=== PATIENT | male | born 1965 | race African-American/Black ===

== ENCOUNTER 2017-10-31 11:10 | Emergency (ER) | payer OTHER ==
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
== END 2017-10-31 12:45 | disposition home or self-care (01) ==
LOC: ERS 11:10
DX: M54.5 Low back pain (principal); V89.2XXA Person injured in unspecified motor-vehicle accident, traffic, initial encounter
CPT/HCPCS: 72128; 72131

== ENCOUNTER 2018-09-19 17:05 | Emergency (ER) | payer OTHER ==
[2018-09-19] MEDS ORDERED: methylPREDNISolone Sod Succ/PF 125 MG/2 ML VIAL ONE (17:34)
== END 2018-09-19 17:56 | disposition home or self-care (01) ==
LOC: ERS 17:05
DX: L25.9 Unspecified contact dermatitis, unspecified cause (principal)
CPT/HCPCS: 96372; 99282; J2930

== ENCOUNTER 2018-11-11 21:18 | Observation (INO) | payer OTHER, SELFPAY ==
[2018-11-11 21:53] LABS: #Lymphocytes 1.6 thou/uL (1.20-3.40); #Monocytes 0.4 thou/uL (0.11-0.59); #Neutrophils 1.4 thou/uL (1.40-6.50); %Basophils 0.3 % (0.0-1.0); %Eosinophils 1.2 % (0.0-10.0); %Lymphocytes 46.9 % (21.0-51.0); %Monocytes 10.7 % (0.0-10.0); %Neutrophils 40.9 % (42.0-75.0); Hemoglobin 13.4 g/dL (14.0-18.0); Mean Corpuscular HGB CONC 34.4 g/dL (32.0-36.0); Mean Corpuscular Hemoglobin 31.5 pg (27.0-31.0); Mean Corpuscular Volume 91.4 fL (78.0-98.0); Mean Platelet Volume 8.8 fL (7.4-10.4); Platelet Count 161 thou/uL (130-400); RBC Distribution Width 12.2 % (11.5-14.5); Red Blood Cell (RBC) Count 4.26 mill/uL (4.70-6.10); White Blood Cell (WBC) Count 3.4 thou/uL (4.8-10.8)
[2018-11-11 22:10] LABS: ALT (SGPT) 34 U/L (8-55); AST (SGOT) 23 U/L (5-34); Albumin 4.1 g/dL (3.5-5.0); Alkaline Phosphatase 53 U/L (40-150); Anion Gap 13 mmol/L (10-20); BUN (Urea Nitrogen) 9 mg/dL (8.4-25.7); Bilirubin, Total 0.6 mg/dL (0.2-1.2); Calc. Creatinine Clearance 0 mL/min (70-130); Calcium 9.1 mg/dL (7.8-10.44); Carbon Dioxide 23 mmol/L (22-29); Chloride 104 mmol/L (98-107); Estimated GFR-MDRD 69; Globulin 3.2 g/dL (2.4-3.5); Glucose 114 mg/dL (70-105); Potassium 3.5 mmol/L (3.5-5.1); Protein, Total 7.3 g/dL (6.0-8.3); Sodium 136 mmol/L (136-145)
[2018-11-11] MEDS ORDERED: Meclizine HCl 25 MG TAB ONE (22:57)
--- NOTE | 2018-11-11 23:17 | CT ---
EXAM: CT brain without contrast HISTORY: Dizziness for one month COMPARISON: 09/23/2015 TECHNIQUE: Multiple contiguous axial images were obtained and a CT of the brain without contrast. FINDINGS: The brain is normal in morphology and attenuation without focal lesions or confluent areas of infarction. There is no evidence of hydrocephalus, intracranial hemorrhage, or extra-axial fluid collection. The calvarium and overlying soft tissues are unremarkable. The visualized paranasal sinuses and masto id air cells are well aerated. IMPRESSION: No evidence of acute intracranial abnormality
[2018-11-12] MEDS ORDERED: Ondansetron PF 4 MG/2 ML Vial IVP PRN (03:22)
[2018-11-12] MEDS ORDERED: Ondansetron ODT 4 MG TAB SL PRN (03:22)
[2018-11-12] MEDS ORDERED: Acetaminophen 325 MG TAB PO PRN (03:22)
[2018-11-12 03:28] LABS: Troponin I Less than 0.010 ng/mL (< 0.028)
[2018-11-12 04:03] VITALS: BMI 35.9
[2018-11-12 06:36] LABS: Troponin I Less than 0.010 ng/mL (< 0.028)
[2018-11-12] MEDS ORDERED: Aspirin 325 mg Enteric Coated Tablet PO SCH (10:15)
--- NOTE | 2018-11-12 14:33 | HP ---
PRIMARY CARE PROVIDER: Escobar Moody MD CHIEF COMPLAINT: Dizziness. HISTORY OF PRESENT ILLNESS: Mr. Singletary is a pleasant 53-year-old gentleman, who was seen at [facility] on November 12, 2018. He reports that he was sitting down yesterday when he felt dizzy and sweaty. He felt like his head was spinning. It lasted 20 to 30 minutes. He denies having any tinnitus or loss of hearing, although he reported to the emergency room that he had some ringing in the ears. He denies any ear pain. He felt like he was going to pass out, but did not have loss of consciousness. He did not fall. He denies any recent respiratory illnesses. He reports that he had an episode of dizziness approximately a month ago. REVIEW OF SYSTEMS: All systems were reviewed and found to be negative, except for the pertinent positives mentioned above. PAST MEDICAL HISTORY: Chronic kidney disease, stage 2. PAST SURGICAL HISTORY: Surgery on buttock cyst. SOCIAL HISTORY: The patient reports occasional alcohol use. Denies recreational drug use or tobacco use. FAMILY HISTORY: Significant for myocardial infarction and diabetes mellitus. ALLERGIES: NO KNOWN DRUG ALLERGIES. MEDICATIONS: Current medication, gabapentin 600 mg daily. PHYSICAL EXAMINATION: GENERAL: On examination, Mr. Singletary is awake and alert, not in acute distress. VITAL SIGNS: Blood pressure is 129/77, pulse 67, respiratory rate 16, and oxygen saturation 96% on room air. He is afebrile. He is obese with a BMI of 36. HEENT: Eyes; no scleral icterus, no conjunctival pallor. ENT, moist mucosal membranes. No oropharyngeal erythema or exudates. NECK: Supple and nontender. Trachea is midline. RESPIRATORY: Accessory muscles of breathing are not active. Chest wall movements are symmetric bilaterally. Lungs are clear to auscultation without wheeze, rhonchi, or crepitations. CARDIOVASCULAR: S1 and S2 are heard, regular. Peripheral pulses palpable. No carotid bruit. No pericardial rub. ABDOMEN: Soft and nontender. Bowel sounds are heard. NEUROLOGIC: He has left lateral nystagmus. Otherwise, cranial nerves 2 through 12 are intact. No focal motor or sensory deficits. Power is 5/5 in all 4 extremities. Deep tendon reflexes 2+. Plantars downgoing bilaterally. MUSCULOSKELETAL: Power is 5/5 in all 4 extremities. SKIN: No rashes or subcutaneous nodules. LYMPHATIC: No cervical lymphadenopathy. PSYCHIATRIC: Normal mood, normal affect. The patient is oriented to person, place, and time. DIAGNOSTIC STUDIES: Mr. Singletary's labs and investigations were reviewed. 12-lead electrocardiogram showed normal sinus rhythm, no ST changes to suggest an acute coronary syndrome. Noncontrast CT scan of the brain did not show any evidence of acute intracranial abnormality. He has leukopenia with 3400 white cells, it was 3600 in April 2016. He also has normocytic anemia with hemoglobin 13.4, normal platelet count. Elevated creatinine of 1.31, last known creatinine 1.36 on July 15, 2017. An otherwise unremarkable comprehensive metabolic profile. Troponin-I has been negative x3. ASSESSMENT AND PLAN: Mr. Singletary is a pleasant 53-year-old gentleman, who was seen at [facility] on November 12, 2018. His problem list includes: 1. Dizziness: Mr. Singletary is presenting with dizziness of unknown etiology. It lasted 20 to 30 minutes yesterday, and he does not have the dizziness anymore. He will be admitted to the hospital for further management including MRI of the brain to rule out stroke, 2D echocardiogram, carotid Dopplers, and Neurology consult. We will start him on aspirin and Lipitor for now. If no etiology is found during this hospitalization, he will benefit from ENT consultation as an outpatient. 2. Chronic kidney disease: This appears to be stable. Many thanks for allowing me to participate in your patient's care. Please feel free to contact me with any questions or concerns. LEVEL OF RISK: Moderate. LEVEL OF COMPLEXITY: Moderate. Job ID: [id number]
--- NOTE | 2018-11-12 14:44 | MRI ---
MRI BRAIN WITHOUT CONTRAST: HISTORY: Transient ischemic attack. COMPARISON: CT brain prior day. FINDINGS: On the diffusion weighted imaging sequence, there are no abnormal foci of diffusion restriction. Thi s is confirmed on the ADC map. Incidental note is made of an empty sella. Mild periventricular and subcortical deep white matter microvascular ischemic changes. On the susceptibility weighted imaging sequence, there are no abnormal foci of hemorrhage. No midlin e shift. No mass effect. Globes are normal. Mild mucosal thickening of the ethmoids and right maxillary sinus. The [place] flow voids are maintained. IMPRESSION: 1. No acute hemorrhage or infarct. Mild chronic microvascular ischemic changes. 2. Small left frontal scalp subgaleal lipoma. POS: HOME
[2018-11-12] MEDS: Gabapentin 300 MG CAP PO SCH (20:11)
[2018-11-12] MEDS ORDERED: Gabapentin 300 MG CAP PO SCH (21:00)
[2018-11-12] MEDS ORDERED: Atorvastatin Calcium 40 MG TAB PO SCH (21:00)
--- NOTE | 2018-11-12 22:19 | ULT ---
EXAM: Carotid ultrasound HISTORY: Dizziness COMPARISON: None TECHNIQUE: Multiplanar grayscale and color Doppler images were obtained in a carotid ultrasound. Spec tral analysis of the Doppler waveforms were performed. FINDINGS: No significant plaque is visualized in either internal carotid artery. No significant plaque is seen in either common carotid artery. The Doppler waveforms are normal in the visualized vessels. Peak systolic velocity in the right internal carotid artery 44 cm/s. Peak systolic velocity in the right common carotid artery 119 cm/s. The right ICA/CCA ratio is 0.4. Peak systolic velocity in the left internal carotid artery 92 cm/s. Peak systolic velocity in the left common carotid artery 125 cm/s. The left ICA/CCA ratio is 0.7. Both vertebral arteries demonstrate antegrade flow without focal stenosis IMPRESSION: No evidence of hemodynamically significant stenosis.
[2018-11-13 06:43] LABS: Eosinophils 2 % (0-10); Hemoglobin 13.9 g/dL (14.0-18.0); Lymphocytes 61 % (21-51); MDiff Complete? YES; Mean Corpuscular HGB CONC 33.1 g/dL (32.0-36.0); Mean Corpuscular Hemoglobin 30.7 pg (27.0-31.0); Mean Corpuscular Volume 92.8 fL (78.0-98.0); Monocytes 2 % (0-10); Neutrophil 35 % (42-75); Platelet Count 157 thou/uL (130-400); Platelet Morphology Comment Appears Adequate; RBC Distribution Width 12.3 % (11.5-14.5); RBC Morphology Normal; Red Blood Cell (RBC) Count 4.52 mill/uL (4.70-6.10); White Blood Cell (WBC) Count 3.5 thou/uL (4.8-10.8)
[2018-11-13 06:45] LABS: Anion Gap 12 mmol/L (10-20); BUN (Urea Nitrogen) 8 mg/dL (8.4-25.7); Calc. Creatinine Clearance 121 mL/min (70-130); Carbon Dioxide 25 mmol/L (22-29); Cardiac Risk 5.5 (Less than 4.5); Chloride 105 mmol/L (98-107); Cholesterol 220 mg/dl (< 200 Desired); Estimated GFR-MDRD 83; Glucose 98 mg/dL (70-105); HDL Cholesterol 40 mg/dL (>60 Neg Risk); LDL Cholesterol, Calculated 127 mg/dL; Potassium 4.1 mmol/L (3.5-5.1); Sodium 138 mmol/L (136-145); Triglycerides 264 mg/dL (Less than 150)
[2018-11-13] MEDS ORDERED: Aspirin 325 mg Enteric Coated Tablet PO SCH (09:00)
[2018-11-13] MEDS ORDERED: Enoxaparin Sodium 40 MG/0.4 ML SYRINGE SC SCH (09:00)
--- NOTE | 2018-11-13 12:40 | CON ---
DATE OF CONSULTATION: 11/13/2018 CONSULTING PHYSICIAN: Hospitalist Service. IMPRESSION: Nonspecific dizziness and diaphoresis without evidence of any neurologic event based on his MRI. PLAN: 1. Aspirin and statin as you have undertaken. 2. Further cardiac workup as Cardiology feels indicated. HISTORY OF PRESENT ILLNESS: Mr. Singletary is a 53-year-old male with a past history of lumbar disk disease. He reports not being on any medication. He had an episode, where he felt diaphoretic and dizzy. There was no associated nausea or headache. There was no lateralized weakness or numbness. He denied any chest pain or shortness of breath. His symptoms lasted about 30 minutes. He has had a prior episode of this in the past, did not seek medical care until this time. Since admission, his workup included an MRI of the brain, which was negative. His carotid ultrasound was clear. Echocardiogram showed 55% to 60% ejection fraction. His cholesterol ratio was 5.5. Remainder of his labs including troponins have been negative. His vital signs have been stable. He has been afebrile. PAST HISTORY: Low back pain. ALLERGIES: NONE. SOCIAL HISTORY: Positive for some alcohol use. No tobacco. FAMILY HISTORY: Noncontributory. REVIEW OF SYSTEMS: Ten-system review of systems is otherwise negative. PHYSICAL EXAMINATION: GENERAL: He is a well-nourished, middle-aged man, in no distress. VITAL SIGNS: Blood pressure 132/66, pulse 66, respirations 18, and temperature 97.6. HEENT: Pupils are equal and reactive. Conjunctivae are clear. Oropharynx clear. NECK: Supple. No lymphadenopathy. EXTREMITIES: No cyanosis or edema. NEUROLOGIC: He is alert and cooperative. His speech is fluent and clear. Cranial nerves are intact. Motor exam shows equal strength. He has no tremor or dysmetria. He can walk independently. LABORATORY DATA: Laboratory studies were reviewed. IMAGING STUDIES: Imaging was reviewed. SUMMARY: This is a middle-aged man with some transient diaphoresis and dizziness, which would sound more consistent with a cardiac issue rather than a neurologic. I agree with continuing aspirin and a statin to address his hyperlipidemia. I will be available if you have any further questions. Job ID: [id number]
--- NOTE | 2018-11-13 16:42 | PDOC.HOSPP ---
- Subjective Encounter Date: 11/13/18 Encounter Time: 07:40 Subjective: Pt seen for followup re: dizziness. States dizziness is better. - Objective Vital Signs & Weight: Vital Signs (12 hours) Temp Pulse Resp BP Pulse Ox 11/13/18 15:35 99.2 F 69 18 116/64 98 11/13/18 11:05 98.2 F 70 18 133/62 94 L 11/13/18 08:00 97.6 F 66 18 132/66 92 L 11/13/18 07:08 93 L Weight Weight 247 lb 4.8 oz I&O: 11/12/18 11/13/18 11/14/18 06:59 06:59 06:59 Intake Total 120 2160 Output Total 0 850 Balance 120 1310 Result Diagrams: 11/13/18 05:32 11/13/18 05:32 Additional Labs: Labs and MARs reviewed by [facility] Hospitalist ROS - Review of Systems Respiratory: denies: cough, dry, shortness of breath, hemoptysis, SOB with excertion, pleuritic pain, sputum, wheezing Cardiovascular: denies: chest pain, palpitations, orthopnea, paroxysmal noc. dyspnea, edema, light headedness - Medication Medications: Active Medications Generic Name Dose Route Start Last Admin Trade Name Freq PRN Reason Stop Dose Admin Aspirin 325 mg 11/13/18 09:00 11/13/18 09:06 Ecotrin PO 325 mg DAILY AUREA Administration Atorvastatin Calcium 40 mg 11/12/18 21:00 11/12/18 20:10 Lipitor PO 40 mg HS AUREA Administration Enoxaparin Sodium 40 mg 11/13/18 09:00 11/13/18 09:06 Lovenox SC 40 mg 0900 AUREA Administration Gabapentin 600 mg 11/12/18 21:00 11/12/18 20:11 Neurontin PO 600 mg HS AUREA Administration Sodium Chloride 10 ml 11/12/18 09:52 11/12/18 20:11 Flush - Normal Saline IVF 10 ml PRN PRN Administration Saline Flush - Exam General Appearance: NAD Eye: anicteric sclera ENT: moist mucosa Neck: supple, no JVD Heart: RRR Respiratory: CTAB Gastrointestinal: soft, non-tender Neurological: no weakness, no focal deficits Psychiatric: normal affect, normal behavior Hosp A/P (1) Dizziness Code(s): R42 - DIZZINESS AND GIDDINESS Status: Acute (2) Dyslipidemia Code(s): E78.5 - HYPERLIPIDEMIA, UNSPECIFIED Status: Acute - Plan Appreciate neurology service input, will consult cardiology. Continue lipitor for dyslipidemia. Continue aspirin.
[2018-11-13] MEDS: Gabapentin 300 MG CAP PO SCH (19:34)
[2018-11-13 20:33] VITALS: BP 132/79; TEMP 97.8
[2018-11-13] MEDS ORDERED: Rosuvastatin 20 MG TAB PO SCH (21:00)
--- NOTE | 2018-11-13 21:18 | CON ---
DATE OF CONSULTATION: 11/13/2018 REASON FOR CONSULTATION: Near syncope. HISTORY OF PRESENT ILLNESS: Mr. Escobar Singletary is a very pleasant 53-year-old gentleman. The patient has had 2 episodes of near syncope. Both episodes were similar. With the most recent episode, the patient was sitting outside talking to his sister relaxing. They were outside from about 5:00 p.m. to 7:00 p.m. and it has been very hot here recently, usually about 100 degrees at that time. He started feeling weak and lightheaded and then broke out in a sweat. He said he was sitting down, he knew he needed to sit down because if he did not, he thought he would lose consciousness. His brought him to the emergency room. Blood pressure is 107 systolic there, but he is feeling better and that was supine. The another episode was very similar to that, both after sitting outside for a couple of hours in the heat. 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 He has never had any problems when he is driving. No chest pain or pressure. He did become diaphoretic with this episode. PAST HISTORY: 1. No hypertension. 2. He does have hypercholesterolemia. SOCIAL HISTORY: No alcohol or tobacco. FAMILY HISTORY: Unremarkable. REVIEW OF SYSTEMS: CONSTITUTIONAL: No significant weight gain or loss. VISION: No changes. HEARING: No changes. PULMONARY: No cough or wheezing. GASTROINTESTINAL: No nausea, vomiting or diarrhea. SKIN: No rashes. NEUROLOGIC: No unilateral weakness or numbness. PSYCHIATRIC: No unusual depression or anxiety. MEDICATIONS: He is on atorvastatin here and aspirin 81 mg a day. Also Neurontin at bedtime. At home, the only medicine was Neurontin. PHYSICAL EXAMINATION: GENERAL: This is a pleasant gentleman, in no distress. VITAL SIGNS: Blood pressure is 116/64, pulse 69. LUNGS: Clear. CARDIAC: Normal S1, normal S2. ABDOMEN: Soft, nontender. EXTREMITIES: No clubbing or cyanosis. There is no edema. SKIN: Warm and dry. LABORATORY DATA: He has mixed hyperlipidemia, triglyceride 264, cholesterol 220 , LDL 127, HDL is 40, creatinine was 1.31, went down to 1.12 indicating he is probably somewhat dehydrated. ASSESSMENT: 1. Orthostatic hypotension probably related to dehydration. 2. Mixed hyperlipidemia, plan to avoid overheating and dehydration. I discussed the importance of his fluid intake including in his case some salt. 3. Sit down or lay down if lightheaded. If he still feels lightheaded in the chair, he needs to lay on the ground. 4. I would recommend a statin with his mixed hyperlipidemia, Crestor 20 mg a day. For completeness, we should likely do stress testing. The patient does not wish to stay in the hospital to have this done. We can arrange for this is an outpatient. He has not had any chest pain or pressure. All his cardiac enzymes are negative.I have advised stress testing. LADONNA
[2018-11-14] MEDS ORDERED: Aspirin 81 mg Enteric Coated Tablet PO SCH (09:00)
--- NOTE | 2018-11-14 15:11 | DIS ---
DATE OF ADMISSION: 11/12/2018 DATE OF DISCHARGE: 11/13/2018 PRIMARY CARE PROVIDER: Dr. Escobar Moody. DISCHARGE DIAGNOSES: 1. Near syncope. 2. Dyslipidemia. 3. Acute kidney injury. CONDITION OF PATIENT ON THE DAY OF DISCHARGE: Stable. I assessed Mr. Singletary on the day of discharge. Please refer to my daily progress note for details regarding the [id number] encounter. DISCHARGE MEDICATIONS: 1. Gabapentin 600 mg at bedtime. 2. Aspirin 81 mg daily. 3. Crestor 20 mg at bedtime. CONSULTATIONS DURING THIS HOSPITALIZATION: 1. Neurology, Dr. Pitt. 2. Cardiology, Dr. Stone. HOSPITAL COURSE: Mr. Singletary is a pleasant 53-year-old gentleman, who was admitted to [facility] on November 12, 2018, for dizziness and near syncope. Please refer to my history and physical note dated November 12, 2018, for further details. He was seen by Neurology and Cardiology Services. MRI of the brain did not show any acute hemorrhage or infarct. He has a small left frontal scalp subgaleal lipoma. A 2D echocardiogram showed left ventricular ejection fraction of 55 to 60%. He was also found to have dyslipidemia with triglycerides 264, cholesterol 220, LDL cholesterol 127, and HDL cholesterol 40. He has been started on statin and aspirin. Cardiology Service will arrange for a stress test as outpatient. He is being discharged home in a stable condition. FOLLOWUP APPOINTMENTS: The patient is advised to follow up with his primary care provider in 3 to 5 days. If he has recurrence of dizziness, he may benefit from referral to ENT specialist. LABORATORY STUDIES: On the day of discharge, he has sodium 138; potassium 4.1; creatinine 1.12, down from 1.31 at the time of admission; white count 3500; hemoglobin 13.9; and platelet count 157,000. Many thanks for allowing me to participate in your patient's care. Please feel free to contact me with any questions or concerns. DISCHARGE DESTINATION: Home. Job ID: [id number]
--- NOTE | 2018-11-19 15:53 | EKG ---
Test Reason : Blood Pressure : / mmHG Vent. Rate : 084 BPM Atrial Rate : 084 BPM P-R Int : 194 ms QRS Dur : 090 ms QT Int : 368 ms P-R-T Axes : 043 033 028 degrees QTc Int : 434 ms Normal sinus rhythm Nonspecific ST and T wave abnormality Abnormal ECG Confirmed by ORAL MARTELL ([id number]), book editor CHARI ECHAVARRIA ([id number]) on 11/19/2018 3:52:59 PM Referred By: Confirmed By:ORAL MARTELL
== END 2018-11-13 19:52 | disposition home or self-care (01) ==
LOC: ERS 21:18 → 2NO 11-12 03:22
PROVIDERS: ADMIT Hospitalist; ATTEND Hospitalist
DX: I95.1 Orthostatic hypotension (principal); N18.2 Chronic kidney disease, stage 2 (mild); N17.9 Acute kidney failure, unspecified; D17.79 Benign lipomatous neoplasm of other sites; E78.00 Pure hypercholesterolemia, unspecified; E78.2 Mixed hyperlipidemia; Z79.899 Other long term (current) drug therapy
CPT/HCPCS: 36415; 70450; 70551; 80048; 80053; 80061; 84484; 85025; 90471; 90732; 93005; 93306; 93880; 96372; G0009; G0378; J1650; J8597

== ENCOUNTER 2019-01-02 17:10 | Emergency (ER) | payer OTHER, SELFPAY ==
[2019-01-02] MEDS ORDERED: Ketorolac Tromethamine 30 MG/ML VIAL ONE (18:23)
--- NOTE | 2019-01-02 18:37 | RAD ---
Right wrist 3 views HISTORY: Right wrist pain. FINDINGS: Scaphoid waist is intact. Hypoplastic ulnar styloid. Mild osteophytosis and subcortical cys ts throughout the wrist. No acute fracture, dislocation, or aggressive osseous erosions. Mild ulnar positive variant. IMPRESSION: Mild to moderate osteoarthritic changes. No acute osseous abnormalities are demonstrated.
== END 2019-01-02 19:12 | disposition home or self-care (01) ==
LOC: ERS 17:10
DX: M19.031 Primary osteoarthritis, right wrist (principal); Z79.899 Other long term (current) drug therapy
CPT/HCPCS: 96372; J1885

== ENCOUNTER 2020-03-10 19:40 | Emergency (ER) | payer OTHER ==
[2020-03-10] MEDS ORDERED: Acetaminophen 500 MG TAB ONE (20:05)
[2020-03-10] MEDS ORDERED: Ibuprofen 200 MG TAB ONE (20:05)
--- NOTE | 2020-03-10 20:53 | RAD ---
EXAM: CHEST ONE VIEW HISTORY: Cough and fever. COMPARISON: 05/31/2016 FINDINGS: The cardiac silhouette and pulmonary vasculature are within normal limits. There is mild increased li near densities at the lung bases greater on the left. Findings could be related to areas of atelectasis or pneumonitis. No consolidation or pleural fluid is seen. No other interval change. IMPRESSION: Bibasilar linear densities greater at the left lung base. Findings may be related to atelectasis or a reas of pneumonitis. Correlation with Covid status is recommended.
[2020-03-11 01:57] LABS: SARS-CoV-2 MS2 Positive; SARS-CoV-2 N Gene Positive; SARS-CoV-2 S Gene Positive; SARS-CoV-2 by NAA DETECTED (NotDetected); SARS-CoV-2 orf1ab Positive
== END 2020-03-10 21:15 | disposition home or self-care (01) ==
LOC: ERS 19:40
DX: U07.1 COVID-19 (principal); E78.00 Pure hypercholesterolemia, unspecified
CPT/HCPCS: 71045; 87635; U0003

== ENCOUNTER 2020-03-11 11:20 | Emergency (ER) | payer OTHER | END 2020-03-11 15:37 | disposition home or self-care (01) | LOC: ERS 11:20 | DX: U07.1 COVID-19 (principal); E78.00 Pure hypercholesterolemia, unspecified | CPT/HCPCS: 93005 ==

== ENCOUNTER 2021-02-03 16:10 | Emergency (ER) | payer OTHER ==
[2021-02-03] MEDS ORDERED: Fentanyl 100 MCG/2 ML VIAL ONE (16:33)
[2021-02-03] MEDS ORDERED: Ketorolac Tromethamine 30 MG/ML VIAL ONE (16:33)
== END 2021-02-03 17:33 | disposition home or self-care (01) ==
LOC: ERS 16:10
DX: M54.50 Low back pain, unspecified (principal); E78.00 Pure hypercholesterolemia, unspecified
CPT/HCPCS: 72100; 72170; 96374; 96375; J1885; J3010